=== PATIENT | male | born 1985 | race Caucasian/White ===

== ENCOUNTER 2022-04-16 11:40 | Emergency (ER) | payer OTHER, SELFPAY ==
[2022-04-16 12:04] VITALS: BP 142/89; PULSE 88; RESP 18; TEMP 36; O2SAT 97; BMI 29.2
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
[2022-04-16] MEDS: Tetracaine HCl/PF 0.5% Oph Sol 4 ML DROPS 1 DROP EYE-BOTH (14:41)
[2022-04-16] MEDS: Fluorescein Sodium STRIP 1 STRIP EYE-BOTH (14:41)
== END 2022-04-16 15:01 | disposition home or self-care (01) ==
PROVIDERS: Emergency Provider Emergency Medicine
DX: S00.212A Abrasion of left eyelid and periocular area, initial encounter (principal); T15.02XA Foreign body in cornea, left eye, initial encounter; W26.9XXA Contact with unspecified sharp object(s), initial encounter; Y93.9 Activity, unspecified; Y92.9 Unspecified place or not applicable; Y99.0 Civilian activity done for income or pay; Z79.899 Other long term (current) drug therapy
CPT/HCPCS: 65220; 99282; 99283

== ENCOUNTER 2023-02-27 01:51 | Emergency (ER) | payer OTHER, SELFPAY ==
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
[2023-02-27 01:56] VITALS: BP 114/74; PULSE 98; TEMP 36.4; O2SAT 98; BMI 29.2
[2023-02-27 05:50] VITALS: BP 110/77; PULSE 93; RESP 18; O2SAT 93
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
[2023-02-27] MEDS: Diphth,Pertus(ACell),Tet Adult 0.5 ML SYRINGE IM (07:08)
[2023-02-27 07:15] VITALS: BP 116/72; PULSE 96; RESP 18; O2SAT 96
--- NOTE | 2023-02-27 07:21 | MHC.EDTECH ---
@[phone] called [facility] per request of Layla PEREZ. The individual on the phone took patient demographics and a call back number. She asked to speak with Layla regarding diagnosis. Layla took the call right away.
[2023-02-27] MEDS: Amoxicillin/Potassium Clav 875 MG TABLET PO (07:55)
[2023-02-27] MEDS: Lidocaine HCl 1 % MPF 5 ML VIAL SUBCUT (07:55)
[2023-02-27] MEDS: Ibuprofen 400 MG TABLET PO (07:55)
[2023-02-27] MEDS: Bacitracin Oint 0.9 GM PACKET 1 APPL TOPICAL (08:59)
== END 2023-02-27 09:01 | disposition home or self-care (01) ==
PROVIDERS: Emergency Provider Emergency Medicine Emergency Medical Services
DX: S61.215A Laceration without foreign body of left ring finger without damage to nail, initial encounter (principal); T23.002A Burn of unspecified degree of left hand, unspecified site, initial encounter; W39.XXXA Discharge of firework, initial encounter; Y93.89 Activity, other specified; Y92.89 Other specified places as the place of occurrence of the external cause; Y99.9 Unspecified external cause status
CPT/HCPCS: 12041; 73120; 90471; 90715; 99284